=== PATIENT | female | born 1970 | race Caucasian/White ===

== ENCOUNTER 2017-02-03 11:07 | Emergency (ER) | payer OTHER ==
[~2017-02-03 11:07] MED LIST: ADVAIR 500-501 EACH; ALBUTEROL17 GM; ALBUTEROL17 GM INH; GUAIFENESIN W-120 ML PO; MEDROL4 MG/DOSE- PO; PREDNISONE PO; PROVENT; SYMBICORT; SYMBICORT INH; ZITHROMAX PO; ZOLOFT PO
[2017-02-03 12:20] LABS: BASOPHIL# 0.1 X10e3 (0-0.3); BASOPHIL% 0.8 % (0-2.5); EOSINOPHIL% 0.5 % (0.0-7.0); HEMATOCRIT 47.8 % (35.0-45.0); HEMOGLOBIN 16.4 gm/dL (12.0-16.0); LYMPHOCYTE% 22.9 % (17.0-45.0); MEAN CELL VOLUME 93.7 FL (83-96); MEAN CORPUSCULAR HEMOGLOBIN 32.1 PG (28-34); MEAN CORPUSCULAR HGB CONC 34.3 g/dL (30-36); MEAN PLATELET VOLUME 7.6 FL (6.5-11.5); MONOCYTE# 0.6 X10e3 (0-1.0); MONOCYTE% 6.5 % (3.0-12.0); NEUTROPHIL# 6.1 X10e3 (1.5-7.1); NEUTROPHIL% 69.3 % (40-75); PLATELET COUNT 317 X10e3 (140-420); RED CELL DISTRIBUTION WIDTH 12.5 % (11.0-15.5); WHITE BLOOD COUNT 8.8 X10e3 (4.0-10.5)
[2017-02-03 12:29] LABS: DIFF IND NO
[2017-02-03 12:39] LABS: ALBUMIN SERUM 4.5 g/dL (3.5-5.0); BILIRUBIN,TOTAL 0.7 mg/dL (0.2-2.0); BUN/CREATININE RATIO 17.14; CALCIUM SERUM 9.4 mg/dL (8.4-10.2); CREATININE SERUM 0.7 mg/dL (0.6-1.4); GLOM FILT RATE Estimated 105.4 mL/min (>60); POTASSIUM 3.5 mmol/L (3.5-5.1); PROTEIN TOTAL SERUM 7.6 g/dL (6.0-8.3)
== END 2017-02-03 13:27 | disposition home or self-care (01) ==
LOC: SED 11:07
PROVIDERS: Emergency Medicine
DX: E86.0 Dehydration (principal); K92.2 Gastrointestinal hemorrhage, unspecified; R19.7 Diarrhea, unspecified; F17.210 Nicotine dependence, cigarettes, uncomplicated; Z79.899 Other long term (current) drug therapy
CPT/HCPCS: 36415; 80053; 85025; 96374; 99284; C9113

== ENCOUNTER → 2017-04-05 | Outpatient (CLI) | payer OTHER ==
--- NOTE | ~2017-04-05 | MY30 ---
[facility] A Service [facility] RADIOLOGY TEXT RESULTS PATIENT: LUIS FRANK LOCATION: [facility] : 74 UNIT #: [id number] AGE: [address]: SHAHLA DEL VALLE APRN SEX: F ORDER DR: [id number] [address] [id number] O MR#: [id number] Acc #: [id number] NAME: LUIS FRANK : 1970 SEX: F STUDY DATE/TIME: 04/05/2017 10:39 UNIT: [facility] ROOM: STUDY DESCRIPTION: MY SCREEN PAIGE BILAT DIGITAL Attending Physician: Shahla Del Valle Aprn Referring Physician: Shahla Del Valle Aprn Ordering Physician: Shahla Del Valle Aprn Primary Care Physician: Shahla Del Valle Aprn MEDICAL IMAGING REPORT This report is preliminary unless electronic signature is present. EXAM Bilateral digital screening mammogram with CAD INDICATIONS Routine screening. No current complaints. Family history of breast cancer is none. COMPARISON None. FINDINGS MLO and CC digital views of each breast were obtained. The exam was reviewed with an FDA-approved CAD device. The breasts are heterogenously dense. There are no masses or abnormal calcifications. IMPRESSION No change, no evidence of malignancy. Patients over the age of 40 are entered into a reminder system with target due date for the next mammogram. A result letter will also be sent to the patient. BIRADS: 1 Negative Dictated by... Chano Martin M.D. THIS IS AN ELECTRONICALLY VERIFIED REPORT Chano Martin M.D. at 04/05/2017 3:10 PM FEL/psc [facility] A [facility] RADIOLOGY TEXT RESULTS PATIENT: LUIS FRANK LOCATION: [facility] : 74 UNIT #: [id number] AGE: [address]: SHAHLA DEL VALLE APRN SEX: F ORDER DR: TD: 04/05/2017 14:27 JOB #: [id number] MEDICAL IMAGING REPORT Page 1 of 1
== END | disposition home or self-care (01) ==
LOC: SMAM 09:51
DX: Z12.31 Encounter for screening mammogram for malignant neoplasm of breast (principal)
CPT/HCPCS: G0202

== ENCOUNTER 2017-04-13 16:16 | Emergency (ER) | payer OTHER ==
[~2017-04-13] VITALS: Ht 167.6 cm; Wt 76.2 kg
[2017-04-13 17:17] LABS: BASOPHIL# 0.1 X10e3 (0-0.3); BASOPHIL% 0.7 % (0-2.5); EOSINOPHIL# 0.1 X10e3 (0-0.7); EOSINOPHIL% 0.5 % (0.0-7.0); HEMATOCRIT 47.5 % (35.0-45.0); HEMOGLOBIN 16.6 gm/dL (12.0-16.0); LYMPHOCYTE# 1.8 X10e3 (1.0-3.5); MEAN CORPUSCULAR HEMOGLOBIN 32.1 PG (28-34); MEAN CORPUSCULAR HGB CONC 34.9 g/dL (30-36); MEAN PLATELET VOLUME 7.5 FL (6.5-11.5); MONOCYTE# 0.8 X10e3 (0-1.0); MONOCYTE% 7.4 % (3.0-12.0); NEUTROPHIL# 7.7 X10e3 (1.5-7.1); NEUTROPHIL% 74.4 % (40-75); PLATELET COUNT 286 X10e3 (140-420); RED BLOOD COUNT 5.16 X10e (3.90-5.30); RED CELL DISTRIBUTION WIDTH 12.5 % (11.0-15.5); WHITE BLOOD COUNT 10.4 X10e3 (4.0-10.5)
[2017-04-13 17:22] LABS: DIFF IND NO
[2017-04-13 17:28] LABS: PROTHROMBIN TIME (PATIENT) 11.7 SECONDS (9.5-12.4)
[2017-04-13 17:35] LABS: PARTIAL THROMBOPLASTIN TIME 26.5 SECONDS (25.6-38.1)
[2017-04-13 17:45] LABS: ALBUMIN SERUM 4.9 g/dL (3.5-5.0); BILIRUBIN, DIRECT 0.2 mg/dL (0.0-0.2); BILIRUBIN,INDIRECT 1.2 mg/dL (0.0-0.9); BILIRUBIN,TOTAL 1.4 mg/dL (0.2-2.0); BUN/CREATININE RATIO 22.5; CREATININE SERUM 0.8 mg/dL (0.6-1.4); GLOM FILT RATE Estimated 89.7 mL/min (>60); PROTEIN TOTAL SERUM 7.7 g/dL (6.0-8.3)
[2017-04-13 17:52] LABS: POTASSIUM 3.4 mmol/L (3.5-5.1)
[2017-04-13 18:55] LABS: URINE APPEARANCE CLEAR; URINE BLOOD 3+ (NEG); URINE COLOR YELLOW; URINE GLUCOSE NEG (NORM); URINE KETONE TRACE (NEG); URINE LEUKOCYTE ESTERASE NEG (NEG); URINE NITRATE NEG (NEG); URINE PROTEIN 1+ (NEG); URINE SPECIFIC GRAVITY >=1.030 (1.003-1.035); URINE UROBILINOGEN 0.2 MG/DL (NORM)
[2017-04-13 18:56] LABS: MICRO INDICATED? YES; URINE BILIRUBIN NEG (NEG); URINE SOURCE CATH
[2017-04-13 19:05] LABS: AMPHETAMINE POS (NEG); BARBITURATES NEG (NEG); BENZODIAZEPINES POS (NEG); COCAINE NEG (NEG); MARIJUANA POS (NEG); OPIATES NEG (NEG); TRICYCLIC ANTIDEPRESSANTS NEG (NEG); U METHADONE NEG (NEG)
[2017-04-13 19:06] LABS: CULTURE INDICATED? YES; URINE BACTERIA 3+ (NEG); URINE SQUAMOUS EPITHELIAL CELL FEW /[HPF]
== END 2017-04-13 19:37 | disposition home or self-care (01) ==
LOC: SED 16:16
PROVIDERS: Student in an Organized Health Care Education/Training Program
DX: R53.1 Weakness (principal); E86.0 Dehydration; M79.1 Myalgia; J45.909 Unspecified asthma, uncomplicated; F17.200 Nicotine dependence, unspecified, uncomplicated; Z79.899 Other long term (current) drug therapy
CPT/HCPCS: 36415; 80048; 80076; 80307; 81003; 82550; 84703; 85025; 85610; 85730; 87086; 96361; 96374; 96375; 99284; J1885; J2405